=== PATIENT | male | born 1995 | race Caucasian/White ===

== ENCOUNTER 2018-12-12 16:48 | Emergency (ER) | payer MEDICAID, SELFPAY ==
[~2018-12-12] VITALS: Ht 167.6 cm; Wt 98.9 kg
[2018-12-12] MEDS ORDERED: NAPR-837 PO (20:10)
--- NOTE | 2018-12-12 20:13 | REP ---
RIGHT KNEE, FIVE VIEWS: FINDINGS: There is no evidence of an acute fracture, dislocation or intrinsic bone disease. IMPRESSION: No fracture or dislocation. Electronically Signed by Devyn Dover MD 12/14/2018 12:52 P
[2018-12-12 20:15] VITALS: BP 133/87
== END 2018-12-12 20:27 | disposition home or self-care (01) ==
LOC: M ED 16:48
DX: M25.561 Pain in right knee (principal); X58.XXXA Exposure to other specified factors, initial encounter; Y92.89 Other specified places as the place of occurrence of the external cause

== ENCOUNTER 2023-06-05 12:27 | Emergency (ER) | payer BC, SELFPAY ==
[~2023-06-05] VITALS: Ht 167.6 cm; Wt 106.3 kg
[~2023-06-05 12:27] MED LIST: NAPR-837 PO
[2023-06-05 14:06] VITALS: BP 157/100; TEMP 98; O2SAT 95
== END 2023-06-05 14:10 | disposition home or self-care (01) ==
LOC: M ED 12:27
DX: U07.1 COVID-19 (principal)

== ENCOUNTER 2023-07-03 13:39 | Emergency (ER) | payer BC ==
[~2023-07-03] VITALS: Ht 167.6 cm; Wt 107.1 kg
[2023-07-03 13:41] VITALS: BP 137/83; TEMP 98.3; O2SAT 97
[2023-07-03 19:21] LABS: BASO % 0.5 % (0.0-1.0); EOS # 0.3 10^3/uL (0.0-0.5); EOS % 3.1 % (0.0-3.0); HEMATOCRIT 45.9 % (42.0-52.0); HEMOGLOBIN 16.1 g/dl (13.5-17.5); LYMPH % 24.4 % (24.0-44.0); MEAN CORPUSCULAR HEMOGLOBIN 31.3 pg (27.0-33.0); MEAN CORPUSCULAR HGB CONC 35.1 g/dl (32.0-36.5); MEAN CORPUSCULAR VOLUME 89.1 fl (80.0-96.0); MONO # 0.5 10^3/uL (0.0-0.8); MONO % 6.8 % (2.0-8.0); NEUTROPHILS # 5.2 10^3/uL (1.5-8.5); NEUTROPHILS % 64.8 % (36.0-66.0); PLATELET COUNT, AUTOMATED 209 10^3/uL (150-450); RED BLOOD COUNT 5.15 10^6/uL (4.30-6.10)
[2023-07-03 19:26] LABS: ERYTHROCYTE SEDIMENTATION RATE 19 mm/hr (0-15)
[2023-07-03] MEDS ORDERED: KETOROLAC 30 MG/ML 1ML VIAL IM ONE (19:35)
[2023-07-03 19:43] LABS: URIC ACID 7.7 MG/DL (3.7-9.2)
[2023-07-03 19:45] LABS: C REACTIVE PROTEIN QUANTITATIV 1.4 MG/DL (<1.0)
[2023-07-03] MEDS ORDERED: NAPR-837 PO (20:01)
[2023-07-03] MEDS ORDERED: PRED20TA PO (20:01)
== END 2023-07-03 20:15 | disposition home or self-care (01) ==
LOC: M ED 13:39
DX: M10.071 Idiopathic gout, right ankle and foot (principal); Z79.52 Long term (current) use of systemic steroids; Z79.1 Long term (current) use of non-steroidal anti-inflammatories (NSAID)
CPT/HCPCS: 73630; 84550; 85025; 85652; 86140; 87040; 96372; 99282; J1885

== ENCOUNTER 2023-07-26 03:35 | Emergency (ER) | payer BC ==
[~2023-07-26] VITALS: Ht 167.6 cm; Wt 108.2 kg
[~2023-07-26 03:35] MED LIST changes: +PRED20TA PO
[2023-07-26] MEDS: ACETAMINOPHEN 325 MG TAB PO ONE (06:20)
[2023-07-26 07:19] LABS: BLOOD UREA NITROGEN 17 MG/DL (9-23); CALCIUM LEVEL 8.4 MG/DL (8.5-10.1); CARBON DIOXIDE LEVEL 23 MMOL/L (20-31); CHLORIDE LEVEL 110 MMOL/L (98-107); CREATININE FOR GFR 0.94 MG/DL (0.70-1.30); GLOMERULAR FILTRATION RATE > 60.0 (>60); GLUCOSE, FASTING 117 MG/DL (60-100); POTASSIUM SERUM 4.1 MMOL/L (3.5-5.1); SODIUM LEVEL 141 MMOL/L (136-145)
[2023-07-26 07:31] LABS: URIC ACID 8.1 MG/DL (3.7-9.2)
[2023-07-26 07:36] LABS: BASO % 0.3 % (0.0-1.0); EOS # 0.1 10^3/uL (0.0-0.5); EOS % 1.1 % (0.0-3.0); HEMATOCRIT 41.5 % (42.0-52.0); HEMOGLOBIN 14.9 g/dl (13.5-17.5); LYMPH # 1.7 10^3/uL (1.5-5.0); LYMPH % 15.1 % (24.0-44.0); MEAN CORPUSCULAR HEMOGLOBIN 31.8 pg (27.0-33.0); MEAN CORPUSCULAR HGB CONC 35.9 g/dl (32.0-36.5); MEAN CORPUSCULAR VOLUME 88.5 fl (80.0-96.0); MONO # 0.7 10^3/uL (0.0-0.8); MONO % 6.4 % (2.0-8.0); NEUTROPHILS # 8.7 10^3/uL (1.5-8.5); NEUTROPHILS % 76.8 % (36.0-66.0); PLATELET COUNT, AUTOMATED 199 10^3/uL (150-450); RED BLOOD COUNT 4.69 10^6/uL (4.30-6.10); WHITE BLOOD COUNT 11.3 10^3/uL (4.0-10.0)
[2023-07-26 08:01] LABS: ERYTHROCYTE SEDIMENTATION RATE 19 mm/hr (0-15)
[2023-07-26] MEDS: COLCHICINE 0.6 MG TABLET PO ONE (08:09)
[2023-07-26] MEDS ORDERED: INDO50CA91 PO (08:19)
[2023-07-26] MEDS: NAPROXEN 250 MG TAB PO ONE (08:27)
[2023-07-26 08:54] VITALS: BP 142/90; TEMP 98.6; O2SAT 97
== END 2023-07-26 08:57 | disposition home or self-care (01) ==
LOC: M ED 03:35
DX: M10.061 Idiopathic gout, right knee (principal)

== ENCOUNTER 2025-01-12 10:01 | Emergency (ER) | payer BC ==
[~2025-01-12] VITALS: Ht 167.6 cm; Wt 102.7 kg
[~2025-01-12 10:01] MED LIST changes: +INDO50CA91 PO
[2025-01-12 13:01] VITALS: BP 143/85; TEMP 97.4; O2SAT 97
[2025-01-12] MEDS: PROPARACAINE 0.5% OPHTH SOL 15ML OS ONE (13:20)
[2025-01-12] MEDS: FLUORESCEIN OPHTH 1 MG STRIP OS ONE (13:20)
[2025-01-12] MEDS ORDERED: ERYT5OIN25 OP (13:34)
[2025-01-12] MEDS ORDERED: ACUL0.5S OP (13:34)
== END 2025-01-12 13:41 | disposition home or self-care (01) ==
LOC: M ED 10:01
DX: S05.02XA Injury of conjunctiva and corneal abrasion without foreign body, left eye, initial encounter (principal); Y92.832 Beach as the place of occurrence of the external cause; Y93.11 Activity, swimming; Y99.9 Unspecified external cause status; Z91.048 Other nonmedicinal substance allergy status; Z79.1 Long term (current) use of non-steroidal anti-inflammatories (NSAID); Z79.899 Other long term (current) drug therapy